=== PATIENT | male | born 1955 | race Caucasian/White ===

== ENCOUNTER 2018-01-05 15:31 | Inpatient (IN) | payer OTHER, SELFPAY ==
[~2018-01-05 15:31] MED LIST: ISOVUE-370 76%-LOCM 1 ML ONE
[2018-01-05] MEDS ORDERED: Nitroglycerin 0.4 MG TAB (25 Tab Bottle) ONE (15:59)
--- NOTE | 2018-01-05 16:20 | RAD ---
PORTABLE UPRIGHT FRONTAL CHEST RADIOGRAPH: 01/05/2018 HISTORY: Chest pain. COMPARISON: None. FINDINGS: Midline sternotomy wires are present. There is mild increased linear density in the left base, sugge sting volume loss or scar. No focal consolidation or alveolar edema. IMPRESSION: No acute findings. POS: [facility]
[2018-01-05] MEDS ORDERED: Fentanyl 100 MCG/2 ML VIAL ONE (16:23)
[2018-01-05 16:26] LABS: CKMB 0.9 ng/mL (0-6.6); Troponin I Less than 0.010 ng/mL (< 0.028)
[2018-01-05 17:05] LABS: #Basophils 0.1 thou/uL (0.0-0.2); #Eosinphils 0.2 thou/uL (0.0-0.7); #Lymphocytes 2.1 thou/uL (1.20-3.40); #Monocytes 0.7 thou/uL (0.11-0.59); #Neutrophils 10.3 thou/uL (1.40-6.50); %Basophils 0.4 % (0.0-1.0); %Eosinophils 1.4 % (0.0-10.0); %Lymphocytes 15.7 % (21.0-51.0); %Monocytes 5.2 % (0.0-10.0); %Neutrophils 77.3 % (42.0-75.0); Hemoglobin 12.7 g/dL (14.0-18.0); Mean Corpuscular HGB CONC 35.5 g/dL (32.0-36.0); Mean Corpuscular Hemoglobin 33.3 pg (27.0-31.0); Mean Corpuscular Volume 93.8 fl (80.0-94.0); Mean Platelet Volume 9.5 fL (7.4-10.4); Platelet Count 257 thou/uL (130-400); RBC Distribution Width 13.3 % (11.5-14.5); Red Blood Cell (RBC) Count 3.83 mill/uL (4.70-6.10); White Blood Cell (WBC) Count 13.4 thou/uL (4.8-10.8)
[2018-01-05] MEDS ORDERED: Lidocaine Viscous Sol 2% 15 ml UD Cup ONE (18:18)
[2018-01-05] MEDS ORDERED: Mag-Al 1200 mg/1200 mg/30 ML UDCUP ONE (18:18)
[2018-01-05 19:37] LABS: Alkaline Phosphatase 102 U/L (40-150)
[2018-01-05 19:38] LABS: Bilirubin, Total 0.7 mg/dL (0.2-1.2); Calc. Creatinine Clearance 0 mL/min (70-130); Calcium 9.2 mg/dL (7.8-10.44); Carbon Dioxide 18 mmol/L (23-31); Chloride 104 mmol/L (98-107); Estimated GFR-MDRD 55; Potassium 4.6 mmol/L (3.5-5.1); Sodium 133 mmol/L (136-145)
[2018-01-05 19:39] LABS: Anion Gap 16 mmol/L (10-20); BUN (Urea Nitrogen) 17 mg/dL (8.4-25.7)
[2018-01-05 19:40] LABS: Globulin 2.6 g/dL (2.4-3.5); Glucose 167 mg/dL (80-115)
[2018-01-05 19:42] LABS: ALT (SGPT) 41 U/L (8-55); AST (SGOT) 40 U/L (5-34); Protein, Total 6.6 g/dL (5.8-8.1)
[2018-01-05] MEDS ORDERED: Morphine 4 MG/ML VIAL ONE (20:14)
--- NOTE | 2018-01-05 21:31 | CT ---
CT AORTIC DISSECTION PROTOCOL 01/05/18 HISTORY: Chest pain. COMPARISON: None. TECHNIQUE: CT angiogram of the thoracic and abdominal aorta is performed in the axial plane. Three dimensional r eformatted images are submitted for interpretation. FINDINGS: CHEST CT: No mediastinal mass, lymphadenopathy, or hematoma. Heart is enlarged. There is no significant pericar dial fluid. Coronary artery calcifications are identified. Dependent atelectatic changes. Possible pneumonia in the left lower lobe versus atelectasis. No pleur al effusion. No pneumothorax. Trachea and central bronchi are patent. ABDOMEN CT: Hypodensities in the liver are too small to characterize but may represent cysts. The largest cyst me asures 1.9 cm and has an attenuation coefficient of 0 Hounsfield units. Diffuse hepatic steatosis is noted. Spleen, adrenal glands are unremarkable. Gallbladder is unremarkable. Bilateral nonobstructing intrarenal calculi. Right renal cyst measuring 2.6 cm is noted. Subcentimet er hypodensity in the left kidney is suspected. Bilaterally, no obstructive uropathy. There is edema and peripancreatic stranding and fluid at the level of the tail of the pancreas. No ev idence of cyst, abscess, or pseudocyst. Visualized alimentary canal is unremarkable. There is free fluid in the left hemiabdomen. No mass, lymphadenopathy, or free air. CT ANGIOGRAM: The aortic arch, ascending thoracic aorta, aortic knob and descending thoracic aorta have an overall normal course and caliber. The origin of the innominate artery, left common carotid artery, and left subclavian artery are unremarkable. The abdominal aorta does demonstrate atherosclerosis. No high gra de stenosis. No evidence of aneurysm. The celiac artery origin, superior mesenteric artery origin, le ft renal arteries and right renal artery are unremarkable. Note, there are two left renal arteries and a single right renal artery. Inferior mesenteric artery origin is unremarkable. Aortic bifurcation is unremarkable. There are no lytic or blastic lesions in the osseous structures. IMPRESSION: 1. No evidence of aneurysm or dissection. 2. Pancreatitis involving the tail of the pancreas. No associated abscess, cyst or pseudocyst. POS: [facility]
[2018-01-05] MEDS ORDERED: cefTRIAXone\\ROCEPHIN 1 GM VIAL ONE (21:49)
[2018-01-05] MEDS ORDERED: HYDROcodone/Acetaminophen 5/325 mg Tablet ONE (22:52)
[2018-01-05 23:29] LABS: Troponin I Less than 0.010 ng/mL (< 0.028)
--- NOTE | 2018-01-06 00:11 | PDOC.FPRHP ---
- History of Present Illness Chief Complaint: Abdominal Pain History of Present Illness: 62 yo M with PMH including HTN, HLD, DM2, and GERD comes in with abdominal pain that started today. The pain is in the LUQ and described as aching, he states the pain is right under the ribs, it radiates around the the back. He has never had anything like this before. He has had nausea today and < 3 episodes of vomiting but he doesn't remember exactly how many times. The pain does not seem to be related to eating. He denies fevers, chills, sweats, or diarrhea. The last time he ate was a sandwich around 11 am. The patient is from out of town and is in town visiting his daughter. ED Course: IVF [place], morphine x2 Rocephin CTA to r/o aneurysm, shows pancreatitis CXR shows LLL linear density, suggests scar or volume loss - Allergies/Adverse Reactions Allergies Allergy/AdvReac Type Severity Reaction Status Date / Time No Known Allergies Allergy Verified 01/06/18 01:18 - Home Medications Medication Instructions Recorded Confirmed Type Allopurinol 300 mg PO DAILY 01/06/18 01/06/18 History Amlodipine [Norvasc] 5 mg PO DAILY 01/06/18 01/06/18 History Aspirin [Aspirin Chewable] 81 mg PO DAILY 01/06/18 01/06/18 History Cholecalciferol (Vitamin D3) 1,000 unit PO DAILY 01/06/18 01/06/18 History [Vitamin D3] Fish Oil [Fish Oil] 1,000 mg PO DAILY 01/06/18 01/06/18 History Metoprolol Succinate [Toprol XL] 200 mg PO BID 01/06/18 01/06/18 History Multivit, Therapeutic [Theragran] 1 tab PO DAILY 01/06/18 01/06/18 History Omeprazole 20 mg PO DAILY 01/06/18 01/06/18 History Spironolactone 25 mg PO DAILY 01/06/18 01/06/18 History glipiZIDE [Glipizide] 5 mg PO DAILY 01/06/18 01/06/18 History hydrOXYzine [Atarax] 10 mg PO HS 01/06/18 01/06/18 History - History PMHx: HTN,hypertriglyceridemia, HLD, DM2, Gout, CAD PSHx: CABG 2011, bilateral hip replacement FHx: non-contributory Social: 2-3 beers a week, 1 bottle of wine per month, no smoking or drugs - Review of Systems General: denies: fever/chills, night sweats, fatigue ENT: denies: nasal congestion Respiratory: denies: cough, congestion, shortness of breath Cardiovascular: denies: chest pain, palpitation Gastrointestinal: reports: nausea, vomiting, abdominal pain. denies: diarrhea, GI bleeding Genitourinary: denies: dysuria, polyuria Skin: denies: rashes, itching Musculoskeletal: denies: pain, arthritis/arthralgias Neurological: denies: numbness, weakness Psychological: denies: anxiety, depression - Vital signs BP: HR: 70 RR: 18 Tmax: 98.4 Pox: 94% on RA Wt: 108.4 - Physical Exam Constitutional: NAD, awake, alert and oriented HEENT: normocephalic and atraumatic, PERRLA, EOMI Neck: supple Heart: RRR, normal S1/S2 Lungs: CTAB, no respiratory distress, good air movement Abdomen: soft, bowel sounds present -Abdomen: diffusely tender to deep palpation Musculoskeletal: normal structure, ROM grossly normal Neurological: no focal deficit Skin: no rash/lesions, capillary refill <2 seconds Heme/Lymphatic: no unusual bruising or bleeding Psychiatric: normal mood and affect FMR H&P: Results - Labs Result Diagrams: 01/06/18 01:12 01/06/18 11:10 Lab results: WBC 13.4 thou/uL (4.8-10.8) H 01/05/18 16:30 Hgb 12.7 g/dL (14.0-18.0) L 01/05/18 16:30 Hct 35.9 % (42.0-52.0) L 01/05/18 16:30 MCV 93.8 fl (80.0-94.0) 01/05/18 16:30 Plt Count 257 thou/uL (130-400) 01/05/18 16:30 Neutrophils % 77.3 % (42.0-75.0) H 01/05/18 16:30 Sodium 133 mmol/L (136-145) L 01/05/18 16:34 Potassium 4.6 mmol/L (3.5-5.1) 01/05/18 16:34 Chloride 104 mmol/L (98-107) 01/05/18 16:34 Carbon Dioxide 18 mmol/L (23-31) L 01/05/18 16:34 BUN 17 mg/dL (8.4-25.7) 01/05/18 16:34 Creatinine 1.32 mg/dL (0.6-1.3) H 01/05/18 16:34 Glucose 167 mg/dL (80-115) H 01/05/18 16:34 Calcium 9.2 mg/dL (7.8-10.44) 01/05/18 16:34 Total Bilirubin 0.7 mg/dL (0.2-1.2) 01/05/18 16:34 AST 40 U/L (5-34) H 01/05/18 16:34 ALT 41 U/L (8-55) 01/05/18 16:34 Alkaline Phosphatase 102 U/L (40-150) 01/05/18 16:34 Creatine Kinase 64 U/L (30-200) 01/05/18 15:51 CK-MB (CK-2) 0.9 ng/mL (0-6.6) 01/05/18 15:50 B-Natriuretic Peptide 111.8 pg/mL (0-100) H 01/05/18 16:30 Serum Total Protein 6.6 g/dL (5.8-8.1) 01/05/18 16:34 Albumin 4.0 g/dL (3.4-4.8) 01/05/18 16:34 Lipase 626 U/L (8-78) H 01/05/18 16:30 FMR H&P: A/P - Problem List (1) Pancreatitis Current Visit: Yes Status: Acute Code(s): K85.90 - ACUTE PANCREATITIS WITHOUT NECROSIS OR INFECTION, UNSP (2) Hypertriglyceridemia Current Visit: Yes Status: Acute Code(s): E78.1 - PURE HYPERGLYCERIDEMIA (3) History of coronary artery bypass graft Current Visit: Yes Status: Acute (4) HTN (hypertension) Current Visit: Yes Status: Acute Code(s): I10 - ESSENTIAL (PRIMARY) HYPERTENSION (5) Gout Current Visit: Yes Status: Acute Code(s): M10.9 - GOUT, UNSPECIFIED (6) Diabetes type 2, controlled Current Visit: Yes Status: Acute Code(s): E11.9 - TYPE 2 DIABETES MELLITUS WITHOUT COMPLICATIONS - Plan 62 yo M with PMH of CABG and hypertriglyceridemia being treated for pancreatitis # Acute Pancreatitis - likely 2/2 history of hypertriglyceridemia - differential includes alcohol, gallstones - check lipid panel, RUQ - IVF, pain relief, advance diet as tolerated - will continue statin although this is potentially a source for pancreatitis # Hx of CAD - CABG in 2011 - trop negative - ASA statin # YONIS - trend Cr - IVF #HTN - home meds # DM2 - home meds - mild SSI Dispo: >48 hours FMR H&P: Upper Level - Pertinent history 62 yo M with PMH of HTN, DM2 presents with severe abdominal pain. Endorses some N/V today as well, nonbloody/nonbilious. Pain in epigastric in nature, nonradiating. No diarrhea. Last po earlier this afternoon. - Pertinent findings PE: T: 97.8 P: 78 BP: 150/77 RR: 18 94% on RA Gen: [place] male in NAD HEENT: PERRL, EOMI, MMM, no lymphadenopathy or thyromegaly CV: RRR no murmurs, distal pulses intact Pulm: CTAB, no wheezes or rhonchi Abd: soft, mildly TTP at epigastrium, BS present, no masses or distention Ext: no cyanosis or edema MSK: KO well, no joint or muscle pain or swelling Neuro: CN 2-12 intact, normal sensation Skin: no rashes or lesions Psych: A&O x3, appropriate in conversation - Plan Date/Time: 01/06/18 0011 62 yo M here with abd pain. 1) Acute pancreatitis: Admit to medical floor. Continue IVF resuscitation. Will hold NPO, but gradually transition to clears in AM if he is able to tolerate this. Check FLP. 2) YONIS: continue IVFs and trend with AM labs 3) HTN: continue home medications 4) DM2: continue po meds I, [Hudson Mak], have evaluated this patient and agree with findings/plan as outlined by administration internship resident. Pertinent changes/additions are listed here. Attending Addendum - Attending Addendum Date/Time: 01/06/18 1037 I personally evaluated the patient and discussed the management with Dr. Lamb. I agree with the History, Examination, Assessment and Plan documented above with any addition or exceptions noted below. The patient is admitted for acute pancreatitis likely 2/2 hypertriglyceridemia. Pt will be managed with fluids and pain meds. RUQ ultrasound was reviewed. Getting records from PCP on recent triglyceride levels because per pt it was 7000.
[2018-01-06] MEDS ORDERED: Dextrose 50% Abboject 50 ML SYRINGE SLOW IVP PRN (00:51)
[2018-01-06] MEDS ORDERED: HumaLOG 300 UNITS/3 ML VIAL SC PRN (00:51)
[2018-01-06] MEDS ORDERED: Dextrose 5% in Water 1,000 ML IV PRN (00:51)
[2018-01-06 01:27] VITALS: BMI 36.3
[2018-01-06 01:47] LABS: Troponin I Less than 0.010 ng/mL (< 0.028)
[2018-01-06] MEDS: Lactated Ringer's 1,000 ML IV SCH ×5 (01:54→19:57)
[2018-01-06] MEDS: Zolpidem Tartrate 5 MG TAB PO PRN ×2 (01:54→21:08)
[2018-01-06] MEDS: Morphine 4 MG/ML VIAL SLOW IVP PRN ×3 (04:51→19:53)
[2018-01-06 07:27] LABS: #Eosinphils 0.1 thou/uL (0.0-0.7); #Lymphocytes 2.3 thou/uL (1.20-3.40); #Monocytes 0.6 thou/uL (0.11-0.59); %Basophils 0.4 % (0.0-1.0); %Eosinophils 1.1 % (0.0-10.0); %Lymphocytes 19.3 % (21.0-51.0); %Monocytes 5.1 % (0.0-10.0); %Neutrophils 74.2 % (42.0-75.0); Hemoglobin 12.9 g/dL (14.0-18.0); Mean Corpuscular HGB CONC 34.2 g/dL (32.0-36.0); Mean Corpuscular Hemoglobin 32.4 pg (27.0-31.0); Mean Corpuscular Volume 94.7 fl (80.0-94.0); Mean Platelet Volume 9.3 fL (7.4-10.4); Platelet Count 224 thou/uL (130-400); RBC Distribution Width 13.9 % (11.5-14.5); Red Blood Cell (RBC) Count 3.99 mill/uL (4.70-6.10); White Blood Cell (WBC) Count 12.1 thou/uL (4.8-10.8)
--- NOTE | 2018-01-06 08:06 | ULT ---
RIGHT UPPER QUADRANT ULTRASOUND: HISTORY: Pancreatitis. Abdominal pain. FINDINGS: The liver demonstrates increased echogenicity, consistent with fatty infiltration. No focal mass or hepatic ductal dilatation is seen. No gallstones, gallbladder wall thickening, or pericholecystic fl uid is seen. The common duct measures 7 mm in diameter. The tail of the pancreas is obscured by ove rlying bowel gas. The visualized portions of the pancreas are unremarkable. There is a 2.5 cm cyst in the right kidney. The liver lesions close to the dome of the liver on the CT scan from the previo us day are not visualized on this study. IMPRESSION: 1. Fatty liver. 2. No evidence of cholelithiasis. 3. Right renal cyst. POS: [facility]
[2018-01-06] MEDS: Spironolactone 25 MG TAB PO SCH (08:18)
[2018-01-06] MEDS: glipiZIDE 5 MG TAB PO SCH (08:18)
[2018-01-06] MEDS: Enoxaparin Sodium 40 MG/0.4 ML SYRINGE SC SCH (08:20)
[2018-01-06] MEDS: Amlodipine 5 MG TAB PO SCH (08:20)
[2018-01-06] MEDS: Ondansetron HCl/PF 4 MG/2 ML Vial IVP PRN ×2 (09:28→17:23)
[2018-01-06 12:04] LABS: Albumin 3.7 g/dL (3.4-4.8)
[2018-01-06 12:05] LABS: ALT (SGPT) 32 U/L (8-55); AST (SGOT) 49 U/L (5-34); Alkaline Phosphatase 93 U/L (40-150); Calcium 8.3 mg/dL (7.8-10.44)
[2018-01-06 12:06] LABS: Calc. Creatinine Clearance 110 mL/min (70-130); Chloride 101 mmol/L (98-107); Cholesterol 434 mg/dL (< 200 Desired); Estimated GFR-MDRD 70; Globulin 3.3 g/dL (2.4-3.5); Glucose 192 mg/dL (80-115); Potassium 4.7 mmol/L (3.5-5.1); Sodium 131 mmol/L (136-145)
[2018-01-06 12:08] LABS: BUN (Urea Nitrogen) 10 mg/dL (8.4-25.7); Carbon Dioxide 22 mmol/L (23-31)
[2018-01-06 12:09] LABS: Anion Gap 13 mmol/L (10-20)
[2018-01-06 12:10] LABS: Triglycerides 2525 mg/dL (Less than 150)
[2018-01-06 12:11] LABS: HDL Cholesterol 16 mg/dL (>60 Neg Risk)
[2018-01-06 12:15] LABS: Cardiac Risk 27.1 (Less than 4.5)
[2018-01-06] MEDS: HYDROcodone/Acetaminophen 10/325 mg Tablet PO PRN (14:50)
[2018-01-06] MEDS: Atorvastatin Calcium 40 MG TAB PO SCH (19:52)
[2018-01-07] MEDS: Lactated Ringer's 1,000 ML IV SCH ×3 (01:20→08:41)
[2018-01-07] MEDS: Morphine 4 MG/ML VIAL SLOW IVP PRN ×4 (03:37→20:18)
[2018-01-07 05:13] LABS: Hemoglobin A1c 6.1 % (4.0-6.0)
[2018-01-07 05:45] LABS: ALT (SGPT) 21 U/L (8-55); AST (SGOT) 18 U/L (5-34); Albumin 3.4 g/dL (3.4-4.8); Alkaline Phosphatase 85 U/L (40-150); Anion Gap 17 mmol/L (10-20); BUN (Urea Nitrogen) 7 mg/dL (8.4-25.7); Bilirubin, Total 1.2 mg/dL (0.2-1.2); Calc. Creatinine Clearance 114 mL/min (70-130); Calcium 7.9 mg/dL (7.8-10.44); Carbon Dioxide 19 mmol/L (23-31); Cardiac Risk 27.5 (Less than 4.5); Chloride 99 mmol/L (98-107); Cholesterol 330 mg/dl (< 200 Desired); Estimated GFR-MDRD 73; Globulin 3.4 g/dL (2.4-3.5); Glucose 172 mg/dL (80-115); HDL Cholesterol 12 mg/dL (>60 Neg Risk); Lipase 263 U/L (8-78); Potassium 4.1 mmol/L (3.5-5.1); Protein, Total 6.8 g/dL (5.8-8.1); Sodium 131 mmol/L (136-145)
[2018-01-07 06:07] LABS: Triglycerides 1468 mg/dL (Less than 150)
[2018-01-07] MEDS: Ondansetron HCl/PF 4 MG/2 ML Vial IVP PRN ×3 (06:39→21:46)
--- NOTE | 2018-01-07 07:02 | PDOC.FM ---
Addendum entered and electronically signed by Nancy Pham DO 01/07/18 14:07: CXR shows vascular congestion and BNP elevated from 111 to 200's since admission. Will order echo and give a dose of IV lasix. Restart IVF tomorrow at slower rate. Also 2 problems that did not get added to todays note: 1. Elevated Protein - SPEP and UPEP pending - patient reports hx of back pain that is currently being worked up outpatient 2. LETY on CPAP at home - will get CPAP here for napping and qHS Original Note: - Subjective Subjective: Patient reports feeling better, but still with nausea and abdominal pain with palpation. He has been tolerating broth and clear liquids. His pain is controlled with Morphine. Reports Osmond made him feel sick to his stomach. No acute events overnight. - Objective MAR Reviewed: Yes Vital Signs & Weight: Vital Signs (12 hours) Temp Pulse Resp BP Pulse Ox 01/07/18 05:10 98.4 F 81 22 H 153/107 H 91 L 01/07/18 01:00 98.4 F 86 22 H 169/82 H 90 L 01/06/18 20:00 98.5 F 82 20 145/78 H Weight Weight 108.409 kg I&O: 01/06/18 01/07/18 01/08/18 06:59 06:59 06:59 Intake Total 1140 2620 Balance 1140 2620 Result Diagrams: 01/06/18 01:12 01/07/18 04:44 <Nancy Pham - Last Filed: 01/07/18 09:18> - Objective Vital Signs & Weight: Vital Signs (12 hours) Temp Pulse Resp BP BP BP Pulse Ox 01/07/18 18:55 98.6 F 01/07/18 16:53 99.2 F 72 16 138/80 94 L 01/07/18 11:57 98.5 F 74 16 133/74 95 01/07/18 08:49 98 01/07/18 08:38 75 150/76 H 01/07/18 08:13 98.6 F 75 16 150/76 H 93 L 01/07/18 08:00 98.6 F 75 16 98 Weight Weight 108.409 kg I&O: 01/06/18 01/07/18 01/08/18 06:59 06:59 06:59 Intake Total 1140 2620 2070 Output Total 600 Balance 1140 2620 1470 Result Diagrams: 01/06/18 01:12 01/07/18 04:44 <Mariel Carballo - Last Filed: 01/07/18 19:47> Phys Exam - Physical Examination Constitutional: NAD conversational HEENT: moist MMs rhonchi at bases, increased work of breathing from yesterday Cardiovascular: RRR, no significant murmur Gastrointestinal: soft mild-mod tenderness to palpation of LUQ, no rebound or guarding 1+ pitting edema Psychiatric: normal affect, A&O x 3 Skin: cap refill <2 seconds <Nancy Pham - Last Filed: 01/07/18 09:18> Dx/Plan (1) Diabetes type 2, controlled Code(s): E11.9 - TYPE 2 DIABETES MELLITUS WITHOUT COMPLICATIONS Status: Acute (2) HTN (hypertension) Code(s): I10 - ESSENTIAL (PRIMARY) HYPERTENSION Status: Acute (3) History of coronary artery bypass graft Status: Acute (4) Hypertriglyceridemia Code(s): E78.1 - PURE HYPERGLYCERIDEMIA Status: Acute (5) Pancreatitis Code(s): K85.90 - ACUTE PANCREATITIS WITHOUT NECROSIS OR INFECTION, UNSP Status: Acute (6) YONIS (acute kidney injury) Code(s): N17.9 - ACUTE KIDNEY FAILURE, UNSPECIFIED Status: Acute - Plan Plan: Acute Pancreatitis 2/2 Hypertriglyceridemia - tri 2525--> 1468 today, trend - RUQ u/s negative for stones - back off on IVF, pain relief, advance diet as tolerated - continue statin and add fibrate or niacin for triglyceride treatment Orthopnea and Increased work of breathing - has received aggressive IVF hydration - CXR and BNP ordered - d/c fluids until results of above Hx of CAD - CABG in 2010 - trop negative - continue ASA, statin YONIS, improving - trend Cr #HTN - continue home meds - elevated but could be due to pain - will continue to trend and consider adding another agent # DM2 - home Glipizide - has been elevated in the 190's -200's here - increase to moderate SSI - A1c 6.1 but patient has noticed increases in sugars over the last 2 weeks <Nancy Pham - Last Filed: 01/07/18 09:18> (1) Pancreatitis Code(s): K85.90 - ACUTE PANCREATITIS WITHOUT NECROSIS OR INFECTION, UNSP Status: Acute (2) Hypertriglyceridemia Code(s): E78.1 - PURE HYPERGLYCERIDEMIA Status: Acute (3) History of coronary artery bypass graft Status: Acute (4) HTN (hypertension) Code(s): I10 - ESSENTIAL (PRIMARY) HYPERTENSION Status: Acute (5) Gout Code(s): M10.9 - GOUT, UNSPECIFIED Status: Acute (6) Diabetes type 2, controlled Code(s): E11.9 - TYPE 2 DIABETES MELLITUS WITHOUT COMPLICATIONS Status: Acute <Mariel Carballo - Last Filed: 01/07/18 19:47> Attending Addendum - Attending Addendum Date/Time: 01/07/181945 I personally evaluated the patient and discussed the management with Dr. Pham. I agree with the History, Examination, Assessment and Plan documented above with any addition or exceptions noted below. Triglycerides have improved with fluids. Pt now has shortness of breath this morning which is worse when lying flat. IV fluids are being stopped. Obtaining CXR, BNP. May need lasix. He does still have abdominal pain in the region of the tail of the pancreas. Continue liquids. <Mariel Carballo - Last Filed: 01/07/18 19:47>
[2018-01-07] MEDS: glipiZIDE 5 MG TAB PO SCH (08:38)
[2018-01-07] MEDS: Amlodipine 5 MG TAB PO SCH (08:38)
[2018-01-07] MEDS: Spironolactone 25 MG TAB PO SCH (08:38)
[2018-01-07] MEDS: Enoxaparin Sodium 40 MG/0.4 ML SYRINGE SC SCH (08:40)
[2018-01-07] MEDS ORDERED: HumaLOG 300 UNITS/3 ML VIAL SC PRN (09:16)
[2018-01-07] MEDS ORDERED: Dextrose 5% in Water 1,000 ML IV PRN (09:16)
[2018-01-07] MEDS ORDERED: Dextrose 50% Abboject 50 ML SYRINGE SLOW IVP PRN (09:16)
--- NOTE | 2018-01-07 10:58 | RAD ---
CHEST ONE VIEW: HISTORY: Dyspnea. COMPARISON: 01/05/2018 FINDINGS: The cardiac silhouette is magnified, enlarged, and partially obscured by increasing patchy bibasilar infiltrates. The pulmonary vasculature is engorged. Blunting of the left lateral costophrenic angle suggests a small amount of pleural fluid. The mediastinum is midline with postoperative changes. IMPRESSION: Developing pulmonary vascular congestion and pulmonary edema. Suspected small left pleural effusion. POS: [facility]
[2018-01-07] MEDS ORDERED: Furosemide 40 MG/4 ML VIAL SLOW IVP SCH (12:15)
[2018-01-07] MEDS: Acetaminophen 325 MG TAB PO PRN (17:52)
[2018-01-07] MEDS: HumaLOG 300 UNITS/3 ML VIAL SC PRN (18:03)
[2018-01-07] MEDS: Cepastat Lozenges 1 LOZ PO PRN (18:32)
[2018-01-07] MEDS: Docusate 100 MG CAP PO SCH (20:17)
[2018-01-07] MEDS: Atorvastatin Calcium 40 MG TAB PO SCH (20:18)
[2018-01-07] MEDS: Zolpidem Tartrate 5 MG TAB PO PRN (21:46)
[2018-01-08] MEDS: Cepastat Lozenges 1 LOZ PO PRN ×3 (04:28→20:25)
[2018-01-08 05:04] LABS: Triglycerides 1148 mg/dL (Less than 150)
[2018-01-08 05:21] LABS: ALT (SGPT) 21 U/L (8-55); AST (SGOT) 42 U/L (5-34); Albumin 3.4 g/dL (3.4-4.8); Alkaline Phosphatase 98 U/L (40-150); Anion Gap 16 mmol/L (10-20); BUN (Urea Nitrogen) 9 mg/dL (8.4-25.7); Band 4 % (5-11); Bilirubin, Total 1.2 mg/dL (0.2-1.2); Calc. Creatinine Clearance 101 mL/min (70-130); Calcium 8.6 mg/dL (7.8-10.44); Carbon Dioxide 22 mmol/L (23-31); Cardiac Risk 25.3 (Less than 4.5); Chloride 98 mmol/L (98-107); Cholesterol 303 mg/dl (< 200 Desired); Eosinophils 4 % (0-10); Estimated GFR-MDRD 63; Globulin 4.4 g/dL (2.4-3.5); Glucose 145 mg/dL (80-115); HDL Cholesterol 12 mg/dL (>60 Neg Risk); Hemoglobin 12.1 g/dL (14.0-18.0); Lymphocytes 11 % (21-51); MDiff Complete? YES; Mean Corpuscular HGB CONC 33.3 g/dL (32.0-36.0); Mean Corpuscular Hemoglobin 30.9 pg (27.0-31.0); Mean Corpuscular Volume 92.8 fl (80.0-94.0); Monocytes 5 % (0-10); Neutrophil 76 % (42-75); Platelet Count 199 thou/uL (130-400); Potassium 4.4 mmol/L (3.5-5.1); Protein, Total 7.8 g/dL (5.8-8.1); RBC Distribution Width 12.9 % (11.5-14.5); Sodium 132 mmol/L (136-145); White Blood Cell (WBC) Count 10.6 thou/uL (4.8-10.8)
--- NOTE | 2018-01-08 05:37 | PDOC.FM ---
- Subjective Subjective: Patient reports worsening pain at the region of the tail of the pancreas, limiting his ability to take deep breaths. He reports nausea with any intake of broth and worsening pain. Overnight he did have a mechanical fall due to his inability to get CPAP mask off quick enough to get to the bathroom. States he urinated a little on the floor and then slipped on it. Today he is weight bearing but does have some pain in his L hip. He had a L hip replacement in the past. - Objective MAR Reviewed: Yes Vital Signs & Weight: Vital Signs (12 hours) Temp Pulse Resp BP Pulse Ox 01/08/18 05:20 98.9 F 85 20 115/72 91 L 01/08/18 04:00 98.5 F 82 20 147/76 H 91 L 01/08/18 00:44 98.6 F 79 20 153/81 H 93 L 01/07/18 21:55 77 92 H 01/07/18 20:15 98.6 F 73 22 H 127/72 92 L 01/07/18 20:00 98.6 F 77 20 01/07/18 18:55 98.6 F Weight Weight 108.409 kg I&O: 01/06/18 01/07/18 01/08/18 06:59 06:59 06:59 Intake Total 1140 2620 2070 Output Total 600 Balance 1140 2620 1470 Result Diagrams: 01/08/18 03:36 01/08/18 03:36 <Nancy Pham - Last Filed: 01/08/18 08:57> - Objective Vital Signs & Weight: Vital Signs (12 hours) Temp Pulse Resp BP Pulse Ox 01/08/18 11:51 95 01/08/18 08:28 98.5 F 80 22 H 131/62 91 L 01/08/18 08:00 98.5 F 80 22 H 91 L 01/08/18 05:20 98.9 F 85 20 115/72 91 L 01/08/18 04:00 98.5 F 82 20 147/76 H 91 L 01/08/18 00:44 98.6 F 79 20 153/81 H 93 L Weight Weight 108.409 kg I&O: 01/07/18 01/08/18 01/09/18 06:59 06:59 06:59 Intake Total 2620 2070 Output Total 600 Balance 2620 1470 Result Diagrams: 01/08/18 03:36 01/08/18 03:36 <Mariel Carballo - Last Filed: 01/08/18 12:43> Phys Exam - Physical Examination Constitutional: NAD HEENT: moist MMs rhonchi at the bases, short inspiratory phase, poor effort Cardiovascular: RRR, no significant murmur Gastrointestinal: soft tenderness in LUQ area in the area of the tail end of pancreas stool palpable in lower abdomen 1+ pitting edema L hip with ttp over greater trochanter, no swelling or bruising Neurological: moves all 4 limbs Psychiatric: normal affect, A&O x 3 Skin: cap refill <2 seconds <Nancy Pham - Last Filed: 01/08/18 08:57> Dx/Plan (1) Diabetes type 2, controlled Code(s): E11.9 - TYPE 2 DIABETES MELLITUS WITHOUT COMPLICATIONS Status: Acute (2) HTN (hypertension) Code(s): I10 - ESSENTIAL (PRIMARY) HYPERTENSION Status: Acute (3) History of coronary artery bypass graft Status: Acute (4) Hypertriglyceridemia Code(s): E78.1 - PURE HYPERGLYCERIDEMIA Status: Acute (5) Pancreatitis Code(s): K85.90 - ACUTE PANCREATITIS WITHOUT NECROSIS OR INFECTION, UNSP Status: Acute (6) YONIS (acute kidney injury) Code(s): N17.9 - ACUTE KIDNEY FAILURE, UNSPECIFIED Status: Acute (7) Fall Code(s): W19.XXXA - UNSPECIFIED FALL, INITIAL ENCOUNTER Status: Acute (8) Hip pain Code(s): M25.559 - PAIN IN UNSPECIFIED HIP Status: Acute (9) Constipation Code(s): K59.00 - CONSTIPATION, UNSPECIFIED Status: Acute - Plan Plan: Acute Pancreatitis 2/2 Hypertriglyceridemia - tri 2525--> 1468--> 1140 today - RUQ u/s negative for stones - NPO with water allowed, reports increased pain when eating broths - continue statin and add fibrate or niacin for triglyceride treatment Orthopnea and Increased work of breathing - has received aggressive IVF hydration, IVF d/c'd yesterday - CXR and BNP suggestive of underlying CHF - echo pending - s/p 40mg IV lasix yesterday with improvement, still with SOB and some rhonchi , will give 20IV lasix this am Hip Pain - s/p fall last night while trying to get out of bed to use the restroom - d/c Ambien - consider L hip xray Hx of CAD - CABG in 2010 - trop negative - continue ASA, statin YONIS - worsened, likely 2/2 Lasix - Cr 1.18, trend Constipation - colace BID - will give dulcolax today HTN - continue home meds - elevated but could be due to pain - will continue to trend and consider adding another agent DM2 - home Glipizide - has been elevated in the 190's -200's here - increase to moderate SSI - A1c 6.1 but patient has noticed increases in sugars over the last 2 weeks Elevated Protein - SPEP and UPEP pending - patient reports hx of back pain that is currently being worked up outpatient LETY on CPAP at home - CPAP in place, did well overnight. <Nancy Pham - Last Filed: 01/08/18 08:57> (1) Pancreatitis Code(s): K85.90 - ACUTE PANCREATITIS WITHOUT NECROSIS OR INFECTION, UNSP Status: Acute (2) Hypertriglyceridemia Code(s): E78.1 - PURE HYPERGLYCERIDEMIA Status: Acute (3) History of coronary artery bypass graft Status: Acute (4) HTN (hypertension) Code(s): I10 - ESSENTIAL (PRIMARY) HYPERTENSION Status: Acute (5) Gout Code(s): M10.9 - GOUT, UNSPECIFIED Status: Acute (6) Diabetes type 2, controlled Code(s): E11.9 - TYPE 2 DIABETES MELLITUS WITHOUT COMPLICATIONS Status: Acute <Mariel Carballo - Last Filed: 01/08/18 12:43> Attending Addendum - Attending Addendum Date/Time: 01/08/18 1238 I personally evaluated the patient and discussed the management with Dr. Pham. I agree with the History, Examination, Assessment and Plan documented above with any addition or exceptions noted below. The patient is still having abdominal pain. Will stop liquid diet. The patient is short of breath this morning. will get CTA chest and rescan abdomen. Echo is pending. <Mariel Carballo - Last Filed: 01/08/18 12:43>
[2018-01-08] MEDS ORDERED: Furosemide 40 MG TAB PO SCH (07:30)
[2018-01-08] MEDS ORDERED: Bisacodyl 10 MG SUPP PR PRN (08:53)
[2018-01-08] MEDS ORDERED: Furosemide 20 MG/2 ML VIAL SLOW IVP SCH (09:00)
[2018-01-08] MEDS: Morphine 4 MG/ML VIAL SLOW IVP PRN (09:50)
[2018-01-08] MEDS: Fish Oil 1,000 MG CAP PO SCH (09:51)
[2018-01-08] MEDS: Docusate 100 MG CAP PO SCH ×2 (09:52→20:25)
[2018-01-08] MEDS: Allopurinol 300 MG TAB PO SCH (09:52)
[2018-01-08] MEDS: glipiZIDE 5 MG TAB PO SCH (09:53)
[2018-01-08] MEDS: Spironolactone 25 MG TAB PO SCH (09:54)
[2018-01-08] MEDS: Amlodipine 5 MG TAB PO SCH (09:54)
[2018-01-08] MEDS: Enoxaparin Sodium 40 MG/0.4 ML SYRINGE SC SCH (09:55)
--- NOTE | 2018-01-08 10:06 | RAD ---
LEFT HIP 2 VIEWS: Date: 01/08/18 HISTORY: 62-year-old male with history of left hip pain following a fall. FINDINGS: Total left hip prosthesis changes. No dislocation or evidence for periprosthetic fracture. Moderate m yositis ossificans, presumably postoperative. IMPRESSION: Total left hip replacement without dislocation or periprosthetic fracture. POS: [facility]
[2018-01-08] MEDS: Ondansetron HCl/PF 4 MG/2 ML Vial IVP PRN ×2 (11:47→17:36)
[2018-01-08] MEDS: Sodium Chloride 0.9% 1,000 ML IV SCH (11:49)
[2018-01-08 14:30] LABS: A/G Ratio 0.9 (0.7-1.7); Albumin 3.1 g/dL (2.9-4.4); Alpha 1 0.2 g/dL (0.0-0.4); Alpha 2 1.2 g/dL (0.4-1.0); Beta 1.1 g/dL (0.7-1.3); Gamma 0.9 g/dL (0.4-1.8); Globulin, Total 3.4 g/dL (2.2-3.9); M-Spike Not Observed g/dL (Not Observed)
--- NOTE | 2018-01-08 14:35 | CT ---
CT ARTERIOGRAM CHEST WITH IV CONTRAST AND 3D MIP IMAGING. HISTORY: Chest pain. Dyspnea. COMPARISON: 01/05/18. FINDINGS: There is good contrast opacification of pulmonary arteries and thoracic aorta with normal branching o f the great vessels. Bibasilar atelectasis is now apparent. No mediastinal adenopathy or evident of pneumothorax. Atherosclerosis of the arterial structures. Pancreatic inflammation is apparent on t he inferiormost images and better detailed on separate CT abdomen report. IMPRESSION: No CT evidence of pulmonary embolus. POS: [facility]
--- NOTE | 2018-01-08 14:39 | CT ---
CT ABDOMEN AND PELVIS WITH IV AND ORAL CONTRAST: HISTORY: Pancreatitis. Abdominal and chest pain. COMPARISON: 01/05/18. FINDINGS: Atelectasis is present at each lung base. Hepatic cysts and aortic calcification are again demonstra jamia. Inflammation within the fat surrounding the pancreatic tail has progressed slightly without abnormal enhancement of the pancreatic parenchyma. Fluid within the left abdomen extending along the left par acolic gutter has increased. Multiple nonobstructing bilateral renal calculi are now appearing, measuring up to 0.6 cm at the infe rior pole left kidney. Urinary collecting systems are decompressed. Degenerative changes lumbar spi ne. Bilateral hip prostheses. IMPRESSION: 1. Interval progression of CT findings of acute pancreatitis, with increased fluid. No complication is reliably demonstrated. 2. Small nonobstructing bilateral renal calculi. 3. Developing bibasilar lung atelectasis. POS: [facility]
[2018-01-08] MEDS ORDERED: ISOVUE-370 76%-LOCM 1 ML ONE (16:31)
[2018-01-08] MEDS ORDERED: Fenofibrate 48 MG TAB PO SCH (16:45)
[2018-01-08] MEDS: Acetaminophen 325 MG TAB PO PRN (17:55)
[2018-01-08 18:09] LABS: Bilirubin Negative (Negative); Blood, Urine Small (Negative); Clarity CLEAR (Clear); Glucose, Urine (Dipstick) Negative (Negative); Leukocyte Negative (Negative); Nitrite Negative (Negative); Protein, Urine (Dipstick) 30 mg/dL (Neg-Trace); Specific Gravity, Urine 1.027 (1.002-1.036); pH, Urine 7.5 (5.0-9.0)
[2018-01-08 18:11] LABS: Bacteria/HPF None Seen HPF (None Seen); Hyaline Casts/LPF 0-3 HYALINE CAST LPF (0-3 Hyaline); RBC/HPF 0-3 HPF (0-3); Squamous Epithelial None Seen HPF (0-3); WBC/HPF None Seen HPF (0-3)
[2018-01-08] MEDS: Atorvastatin Calcium 40 MG TAB PO SCH (20:25)
[2018-01-08] MEDS: Melatonin 3 MG TAB PO PRN (21:41)
[2018-01-09] MEDS: Sodium Chloride 0.9% 1,000 ML IV SCH ×2 (02:09→14:48)
[2018-01-09 04:54] LABS: #Eosinphils 0.3 thou/uL (0.0-0.7); #Lymphocytes 1.1 thou/uL (1.20-3.40); #Monocytes 0.6 thou/uL (0.11-0.59); #Neutrophils 6.6 thou/uL (1.40-6.50); %Basophils 0.4 % (0.0-1.0); %Eosinophils 3.2 % (0.0-10.0); %Lymphocytes 12.4 % (21.0-51.0); %Monocytes 6.8 % (0.0-10.0); %Neutrophils 77.3 % (42.0-75.0); Hemoglobin 10.9 g/dL (14.0-18.0); Mean Corpuscular HGB CONC 34.1 g/dL (32.0-36.0); Mean Corpuscular Hemoglobin 32.1 pg (27.0-31.0); Mean Corpuscular Volume 93.9 fl (80.0-94.0); Mean Platelet Volume 9.1 fL (7.4-10.4); Platelet Count 184 thou/uL (130-400); Red Blood Cell (RBC) Count 3.39 mill/uL (4.70-6.10); White Blood Cell (WBC) Count 8.6 thou/uL (4.8-10.8)
--- NOTE | 2018-01-09 04:59 | PDOC.FM ---
- Subjective Subjective: Patient reporting much improvement today in regard to pain and nausea. He denies hip pain today and reports he slept well. He did not use CPAP overnight because he reports mask does not fit well and is uncomfortable but did stay on o2 all night. No acute events overnight. - Objective MAR Reviewed: Yes Vital Signs & Weight: Vital Signs (12 hours) Temp Pulse Resp BP Pulse Ox 01/09/18 00:00 98.1 F 79 18 130/80 93 L 01/08/18 20:00 97.5 F L 70 18 165/76 H 96 01/08/18 18:33 99.2 F 01/08/18 17:54 100.2 F H Weight Weight 108.409 kg I&O: 01/07/18 01/08/18 01/09/18 06:59 06:59 06:59 Intake Total 2620 2070 Output Total 600 Balance 2620 1470 Result Diagrams: 01/09/18 03:36 01/09/18 03:36 <Nancy Pham - Last Filed: 01/09/18 09:43> - Objective Vital Signs & Weight: Vital Signs (12 hours) Temp Pulse Resp BP BP BP Pulse Ox 01/09/18 08:00 98.8 F 80 18 152/76 H 94 L 01/09/18 07:34 98.4 F 83 18 01/09/18 07:27 98.4 F 83 18 160/81 H 92 L 01/09/18 04:00 99.0 F 83 18 142/72 H 95 01/09/18 00:00 98.1 F 79 18 130/80 93 L Weight Weight 107.104 kg I&O: 01/08/18 01/09/18 01/10/18 06:59 06:59 06:59 Intake Total 2070 1140 Output Total 600 Balance 1470 1140 Result Diagrams: 01/09/18 03:36 01/09/18 03:36 <Mariel Carballo - Last Filed: 01/09/18 10:04> Phys Exam - Physical Examination Constitutional: NAD HEENT: moist MMs Respiratory: no wheezing, no rales, clear to auscultation bilateral Cardiovascular: RRR, no significant murmur Gastrointestinal: soft, non-tender, no distention, positive bowel sounds point ttp along pancreatic tail trace edema Neurological: moves all 4 limbs Psychiatric: normal affect, A&O x 3 <Nancy Pham - Last Filed: 01/09/18 09:43> Dx/Plan (1) Diabetes type 2, controlled Code(s): E11.9 - TYPE 2 DIABETES MELLITUS WITHOUT COMPLICATIONS Status: Acute (2) HTN (hypertension) Code(s): I10 - ESSENTIAL (PRIMARY) HYPERTENSION Status: Acute (3) History of coronary artery bypass graft Status: Acute (4) Hypertriglyceridemia Code(s): E78.1 - PURE HYPERGLYCERIDEMIA Status: Acute (5) Pancreatitis Code(s): K85.90 - ACUTE PANCREATITIS WITHOUT NECROSIS OR INFECTION, UNSP Status: Acute (6) YONIS (acute kidney injury) Code(s): N17.9 - ACUTE KIDNEY FAILURE, UNSPECIFIED Status: Acute (7) Fall Code(s): W19.XXXA - UNSPECIFIED FALL, INITIAL ENCOUNTER Status: Acute (8) Hip pain Code(s): M25.559 - PAIN IN UNSPECIFIED HIP Status: Acute (9) Constipation Code(s): K59.00 - CONSTIPATION, UNSPECIFIED Status: Acute - Plan Plan: Acute Pancreatitis 2/2 Hypertriglyceridemia - tri 2525--> 1468--> 1140--> 847 today - RUQ u/s negative for stones - NPO with water allowed, reports increased pain when eating broths, will increase to clears this evening but stay away from broths - continue statin and fibrate - GI consulted, appreciate recs Newly diagnosed Diastolic CHF - echo with normal EF, but suggestive of diastolic dysfunction - continue gentle hydration with NS at 75ml/hr - closely monitor fluid status S/P Fall - hip xray wnl, no pain today - d/c'd ambien Hx of CAD - CABG in 2010 - trop negative - continue ASA, statin YONIS - Improving despite contrast yesterday - continue gentle fluids Constipation, resolved - BM yesterday HTN - continue home meds - elevated but could be due to pain - will continue to trend and consider adding another agent DM2 - home Glipizide - has been elevated in the 190's -200's here - continue mild SSI Elevated Protein - SPEP and UPEP pending - patient reports hx of back pain that is currently being worked up outpatient LETY on CPAP at home - refused CPAP overnight, did well on O2. <Nancy Pham - Last Filed: 01/09/18 09:43> (1) Pancreatitis Code(s): K85.90 - ACUTE PANCREATITIS WITHOUT NECROSIS OR INFECTION, UNSP Status: Acute (2) Hypertriglyceridemia Code(s): E78.1 - PURE HYPERGLYCERIDEMIA Status: Acute (3) History of coronary artery bypass graft Status: Acute (4) HTN (hypertension) Code(s): I10 - ESSENTIAL (PRIMARY) HYPERTENSION Status: Acute (5) Gout Code(s): M10.9 - GOUT, UNSPECIFIED Status: Acute (6) Diabetes type 2, controlled Code(s): E11.9 - TYPE 2 DIABETES MELLITUS WITHOUT COMPLICATIONS Status: Acute <Mariel Carballo - Last Filed: 01/09/18 10:04> Attending Addendum - Attending Addendum Date/Time: 01/09/18 1003 I personally evaluated the patient and discussed the management with Dr. Pham. I agree with the History, Examination, Assessment and Plan documented above with any addition or exceptions noted below. The patient is feeling better. He still has abdominal pain but it is slowly improving. Will continue npo status until this evening. Triglycerides are down to the 800's. <Mariel Carballo - Last Filed: 01/09/18 10:04>
[2018-01-09 05:11] LABS: ALT (SGPT) 16 U/L (8-55); AST (SGOT) 18 U/L (5-34); Albumin 3.4 g/dL (3.4-4.8); Alkaline Phosphatase 116 U/L (40-150); Anion Gap 13 mmol/L (10-20); BUN (Urea Nitrogen) 9 mg/dL (8.4-25.7); Calc. Creatinine Clearance 108 mL/min (70-130); Calcium 8.6 mg/dL (7.8-10.44); Carbon Dioxide 25 mmol/L (23-31); Cardiac Risk 26.2 (Less than 4.5); Chloride 100 mmol/L (98-107); Cholesterol 262 mg/dl (< 200 Desired); Estimated GFR-MDRD 68; Globulin 3.1 g/dL (2.4-3.5); Glucose 130 mg/dL (80-115); HDL Cholesterol 10 mg/dL (>60 Neg Risk); Lipase 70 U/L (8-78); Potassium 3.6 mmol/L (3.5-5.1); Protein, Total 6.5 g/dL (5.8-8.1); Sodium 134 mmol/L (136-145); Triglycerides 847 mg/dL (Less than 150)
[2018-01-09] MEDS: Fish Oil 1,000 MG CAP PO SCH (07:30)
[2018-01-09] MEDS: Amlodipine 5 MG TAB PO SCH (07:30)
[2018-01-09] MEDS: Docusate 100 MG CAP PO SCH ×2 (07:30→20:21)
[2018-01-09] MEDS: glipiZIDE 5 MG TAB PO SCH (07:30)
[2018-01-09] MEDS: Enoxaparin Sodium 40 MG/0.4 ML SYRINGE SC SCH (07:30)
[2018-01-09] MEDS: Allopurinol 300 MG TAB PO SCH (07:30)
[2018-01-09] MEDS: Fenofibrate 48 MG TAB PO SCH (07:31)
[2018-01-09] MEDS: Spironolactone 25 MG TAB PO SCH (07:31)
--- NOTE | 2018-01-09 08:16 | CON ---
DATE OF SERVICE: 01/08/2018 REASON FOR CONSULTATION: Pancreatitis. HISTORY OF PRESENT ILLNESS: Mr. Reyes is a pleasant 62-year-old gentleman who came to the hospital on the 6th with epigastric pain, left upper quadrant pain which he has not ever had before. It is aching, feels like pressure on his left ribs, it radiated to the back initially, but does not now. He has some nausea and vomiting. He had a CAT scan that showed some fat stranding around the tail of the pancreas. He had normal liver function tests, AST and ALT are 40 and 41, alkaline phosphatase of 102, bilirubin of 0.7. His lipase was 626, albumin 4. White count was 13.4, hemoglobin was 12.7, platelets are 257,000. He was started on IV fluid resuscitation and made n.p.o. He had a CAT scan that showed some stranding in the tail of pancreas. Remainder of the pancreas is normal. No masses or cysts in the liver and some fatty liver. Ultrasound performed showed no signs of gallstones. He was found to have hypertriglyceridemia and history is noted in the past with levels up to 7000 at the [facility]. Difficult to control and it has come down from 2525 to 1148 today. Last night, he had some issues with shortness of breath and worsening left upper quadrant pain, restricting his breath, and he had a repeat CAT scan today which showed some increase fluid stranding in the left pericolic gutter on the pancreas, but well perfused pancreas. No signs of necrosis. He had a CT scan of chest to rule out PE, which was negative as well. He did have a fall last night, trying to get out of bed to urinate feels well regard to that, hip x- ray was negative. Presently, he is resting comfortably in bed. He has an appetite. He is mildly nauseated. He is voiding well. PAST MEDICAL HISTORY: Notable for hyperlipidemia, hypertriglyceridemia. He has coronary artery disease with previous CABG. He has diabetes, the A1c that runs around 6, history at the [place]. He has history of hypertriglyceridemia for which he has been on statins, fish oil and TriCor. Gout. PAST SURGICAL HISTORY: Includes hip replacement and coronary artery bypass grafting. FAMILY HISTORY: No family history of pancreatic disease or cystic fibrosis. HOME MEDICATIONS: Allopurinol, amlodipine, aspirin, Calciferol, fish oil, metoprolol, multivitamin, omeprazole, spironolactone, glipizide, Atarax p.r.n. He has not had any new medications or does not takes any herbs or vitamins. SOCIAL HISTORY: Negative for drugs, tobacco. Alcohol as noted above. ALLERGIES: None known. PRESENT MEDICATIONS: Here Tylenol p.r.n., allopurinol, Norvasc, chewable aspirin 81 day, Lipitor, bisacodyl, Colace, Lovenox, TriCor 48 p.o. daily, fish oil, Glucotrol, Lorraine p.r.n., Humalog sliding scale, Lopressor, morphine, Zofran , normal saline at 75 an hour, Aldactone 25. Intraoperatively, he received about 5 L of fluid since admission. Urine output is not recorded. PHYSICAL EXAMINATION: VITAL SIGNS: T-max 100.2 earlier today, presently 97.9; pulse 70; blood pressure 165/76. GENERAL: Sitting up on the bed, playing cards. His daughter is in the room with him. He is in good spirits. He is in no distress. HEENT: Oropharynx without lesions. Mucous membranes are pink and moist. LUNGS: Clear except for decreased breath sounds at right base. HEART: Regular rate and rhythm. ABDOMEN: Slight protuberant, is tender in the left upper quadrant with voluntary guarding, but no rebound. Lower abdomen is nontender. EXTREMITIES: No clubbing, cyanosis, or edema. SKIN: Without rash or lesions. There is no spider angiomas or scleral icterus. LABORATORY STUDIES: Today, sodium 132, BUN and creatinine are 9 and 1.18 down from 1.32 on admission, glucose 145. Hemoglobin A1c on admission was 6.1, bilirubin is 1.2, AST 42, ALT 21, alkaline phosphatase 98, total protein 7.8, albumin 3.4, globulin is 4.4. Triglycerides today 1148. Cholesterol 303. Lipase is 623 on admission, it was 263 yesterday. A CAT scan films reviewed. ASSESSMENT: 1. Pancreatitis, likely secondary to hypertriglyceridemia, although he has not ever had in the past which is a little bit odd. I started new medications account for this, he is not to drink excessive amounts of alcohol, does not have any gallstones. Liver tests go against any biliary pancreatitis. He has got a slightly elevated globulin gap and differential diagnosis. Autoimmune pancreatitis can be considered; however, the CAT scan does not show atypical appearance of that. 2. He seems to have been well resuscitated, in fact he got a little bit short of breath and probably a little bit of pulmonary edema with resuscitation, it has dropped with slight effusion. There is some fluid in the left pericolic gutter at this time. The pancreas does appear to perfuse in this recent study and I think this is just relation to his resuscitation. 3. Hypertriglyceridemia, not optimally controlled. RECOMMENDATIONS: 1. We will check IgG subclass type 4 and ARABELLA to evaluate for possible autoimmune pancreatitis. 2. We will check a lipase tomorrow. If still trending downward, we will let him start liquids. 3. I would recommend aggressive control of hypertriglyceridemia. This could be done with insulin or consider consulting Endocrinology or Cardiology to aid, assistance with hypertriglyceridemia. 4. Make sure we will follow along with you with regard to the pancreatitis. He seems to be doing well with stable hemoglobin, stable renal function and good resuscitation. CHRISTOPHE
[2018-01-09] MEDS ORDERED: Metoprolol Tartrate 100 MG TAB PO SCH (09:00)
[2018-01-09] MEDS ORDERED: Bisacodyl 5 MG TAB PO PRN (13:03)
--- NOTE | 2018-01-09 16:19 | PRG ---
DATE OF SERVICE: 01/09/2018 SUBJECTIVE: Mr. Reyes states he feels much better today than yesterday. Still has some discomfort. He is hungry. He wants to eat a hamburger. MEDICATIONS: Unchanged from yesterday. PHYSICAL EXAMINATION: VITAL SIGNS: Temperature is 98.8, pulse 80, respirations 18, blood pressure 152/76. ABDOMEN: Soft, mildly tender in left upper quadrant, less so today than yesterday. There is no rebo und or guarding. LABORATORY STUDIES: White count 8.6, hemoglobin 10.0, platelet count 184. Sodium 134, potassium 3.6 , BUN and creatinine 9 and 1.1. Triglycerides are down to 247. Lipase is 70. ASSESSMENT: Pancreatitis, likely related to hypertriglyceridemia. Serologic evaluation for autoimmu ne pancreatitis is ordered and pending. RECOMMENDATIONS: 1. As he has tolerated clears this morning, I would advance him to full liquid diet, monitor closely . 2. Continue aggressive treatment of his hypertriglyceridemia.
[2018-01-09] MEDS: Acetaminophen 325 MG TAB PO PRN (17:26)
[2018-01-09] MEDS: Atorvastatin Calcium 40 MG TAB PO SCH (20:21)
[2018-01-09] MEDS: Metoprolol Tartrate 100 MG TAB PO SCH (20:21)
[2018-01-10] MEDS: Melatonin 3 MG TAB PO PRN (00:25)
[2018-01-10] MEDS: Sodium Chloride 0.9% 1,000 ML IV SCH (04:12)
--- NOTE | 2018-01-10 06:58 | PDOC.FM ---
- Subjective Subjective: Patient was advanced to full liquid diet yesterday evening and reports he again feels bad, but he doesn't think its related to eating. He describes cramping abdominal pain. He thought it was constipation but did not resolve with BM. He did have a 100.4 fever overnight but doesn't recall feeling feverish. Denies cough, congestion, dysuria. - Objective MAR Reviewed: Yes Vital Signs & Weight: Vital Signs (12 hours) Temp Pulse Resp BP Pulse Ox 01/10/18 05:05 98.4 F 74 18 148/77 H 96 01/10/18 00:15 100.4 F H 74 18 156/70 H 92 L 01/09/18 20:00 97.9 F 81 20 01/09/18 19:49 97.9 F 81 20 146/72 H 95 Weight Weight 105.596 kg I&O: 01/08/18 01/09/18 01/10/18 06:59 06:59 06:59 Intake Total 2070 1140 720 Output Total 600 Balance 1470 1140 720 Result Diagrams: 01/09/18 03:36 01/09/18 03:36 <Nancy Pham - Last Filed: 01/10/18 07:46> - Objective Vital Signs & Weight: Vital Signs (12 hours) Temp Pulse Resp BP BP Pulse Ox 01/10/18 12:46 157/66 H 01/10/18 08:00 98.2 F 78 18 93 L 01/10/18 07:31 98.2 F 78 18 152/93 H 93 L 01/10/18 05:05 98.4 F 74 18 148/77 H 96 Weight Weight 105.596 kg I&O: 01/09/18 01/10/18 01/11/18 06:59 06:59 06:59 Intake Total 1140 720 Balance 1140 720 Result Diagrams: 01/09/18 03:36 01/10/18 07:27 <Mariel Carballo - Last Filed: 01/10/18 15:40> Phys Exam - Physical Examination Constitutional: NAD Respiratory: no wheezing, no rales, clear to auscultation bilateral Cardiovascular: RRR, no significant murmur Gastrointestinal: no distention, positive bowel sounds guarded, ttp along LUQ at tail end of pancreas, no rebound Musculoskeletal: pulses present trace edema Neurological: moves all 4 limbs Psychiatric: A&O x 3 <Nancy hPam - Last Filed: 01/10/18 07:46> Dx/Plan (1) Diabetes type 2, controlled Code(s): E11.9 - TYPE 2 DIABETES MELLITUS WITHOUT COMPLICATIONS Status: Acute (2) HTN (hypertension) Code(s): I10 - ESSENTIAL (PRIMARY) HYPERTENSION Status: Acute (3) History of coronary artery bypass graft Status: Acute (4) Hypertriglyceridemia Code(s): E78.1 - PURE HYPERGLYCERIDEMIA Status: Acute (5) Pancreatitis Code(s): K85.90 - ACUTE PANCREATITIS WITHOUT NECROSIS OR INFECTION, UNSP Status: Acute (6) YONIS (acute kidney injury) Code(s): N17.9 - ACUTE KIDNEY FAILURE, UNSPECIFIED Status: Acute (7) Fall Code(s): W19.XXXA - UNSPECIFIED FALL, INITIAL ENCOUNTER Status: Acute (8) Hip pain Code(s): M25.559 - PAIN IN UNSPECIFIED HIP Status: Acute (9) Constipation Code(s): K59.00 - CONSTIPATION, UNSPECIFIED Status: Acute - Plan Plan: Acute Pancreatitis 2/2 Hypertriglyceridemia - tri 2525--> 1468--> 1140--> 847--> todays value pending - lipase trended down from 600's to 60's - ARABELLA and IgG subclass 4 pending to evaluate for autoimmune cause - RUQ u/s negative for stones - Full liquid diet and advance as tolerated - continue statin and fibrate - GI consulted, appreciate recs - morphine for pain Fever - blood cx/urine cx and CXR pending Newly diagnosed Diastolic CHF - echo with normal EF, but suggestive of diastolic dysfunction - continue gentle hydration with NS at 75ml/hr - closely monitor fluid status Hx of CAD - CABG in 2010 - trop negative - continue ASA, statin YONIS - todays value pending, improved from admission - continue gentle fluids Constipation, resolved - BM yesterday HTN - continue home meds - elevated but could be due to pain - will continue to trend and consider adding another agent DM2 - home Glipizide - continue mild SSI Elevated Protein - SPEP and UPEP pending - patient reports hx of back pain that is currently being worked up outpatient LETY on CPAP at home - refused CPAP overnight, did well on O2. <Nancy Pham - Last Filed: 01/10/18 07:46> (1) Pancreatitis Code(s): K85.90 - ACUTE PANCREATITIS WITHOUT NECROSIS OR INFECTION, UNSP Status: Acute (2) Hypertriglyceridemia Code(s): E78.1 - PURE HYPERGLYCERIDEMIA Status: Acute (3) History of coronary artery bypass graft Status: Acute (4) HTN (hypertension) Code(s): I10 - ESSENTIAL (PRIMARY) HYPERTENSION Status: Acute (5) Gout Code(s): M10.9 - GOUT, UNSPECIFIED Status: Acute (6) Diabetes type 2, controlled Code(s): E11.9 - TYPE 2 DIABETES MELLITUS WITHOUT COMPLICATIONS Status: Acute <Mariel Carballo - Last Filed: 01/10/18 15:40> Attending Addendum - Attending Addendum Date/Time: 01/10/18 1621 I personally evaluated the patient and discussed the management with Dr. Pham. I agree with the History, Examination, Assessment and Plan documented above with any addition or exceptions noted below. Pt with fever overnight. Pt notes to Dr. Pham and I that his abdominal pain has not improved since yesterday. Will repeat cultures, blood and urine and check CXR. Triglycerides continues to decrease with IV fluids. <Mariel Carballo - Last Filed: 01/10/18 15:40>
[2018-01-10] MEDS: Fenofibrate 48 MG TAB PO SCH (07:50)
[2018-01-10] MEDS: Spironolactone 25 MG TAB PO SCH (07:50)
[2018-01-10] MEDS: Docusate 100 MG CAP PO SCH ×2 (07:50→20:37)
[2018-01-10] MEDS: Fish Oil 1,000 MG CAP PO SCH (07:50)
[2018-01-10] MEDS: Enoxaparin Sodium 40 MG/0.4 ML SYRINGE SC SCH (07:50)
[2018-01-10] MEDS: glipiZIDE 5 MG TAB PO SCH (07:50)
[2018-01-10] MEDS: Allopurinol 300 MG TAB PO SCH (07:51)
[2018-01-10] MEDS: Amlodipine 5 MG TAB PO SCH (07:51)
[2018-01-10] MEDS: Metoprolol Tartrate 100 MG TAB PO SCH ×2 (07:51→20:37)
[2018-01-10 08:12] LABS: ALT (SGPT) 29 U/L (8-55); AST (SGOT) 44 U/L (5-34); Albumin 3.4 g/dL (3.4-4.8); Alkaline Phosphatase 182 U/L (40-150); Anion Gap 15 mmol/L (10-20); BUN (Urea Nitrogen) 8 mg/dL (8.4-25.7); Bilirubin, Total 1.1 mg/dL (0.2-1.2); Calc. Creatinine Clearance 100 mL/min (70-130); Calcium 9.1 mg/dL (7.8-10.44); Carbon Dioxide 21 mmol/L (23-31); Cardiac Risk 26.5 (Less than 4.5); Chloride 101 mmol/L (98-107); Cholesterol 265 mg/dl (< 200 Desired); Estimated GFR-MDRD 64; Globulin 3.8 g/dL (2.4-3.5); Glucose 156 mg/dL (80-115); HDL Cholesterol 10 mg/dL (>60 Neg Risk); Lipase 100 U/L (8-78); Protein, Total 7.2 g/dL (5.8-8.1); Sodium 133 mmol/L (136-145); Triglycerides 711 mg/dL (Less than 150)
--- NOTE | 2018-01-10 09:50 | RAD ---
CHEST 2 VIEWS: HISTORY: Fever. Dyspnea. COMPARISON: 01/08/18. FINDINGS: The cardiac silhouette is unremarkable. Pulmonary vasculature upper limits of normal. Infiltrate at the left base has progressed slightly with evidence of left pleural fluid. Mediastinum midline with aortic calcification and postoperative changes. IMPRESSION: Worsening left basilar infiltrate. Clinical correlation regarding other signs and symptoms of left b asilar pneumonitis is required. Left pleural fluid has increased. Please consider radiographic foll owup after medical treatment to evaluate for clearing. POS: [facility]
[2018-01-10] MEDS ORDERED: Furosemide 20 MG/2 ML VIAL SLOW IVP SCH (12:00)
--- NOTE | 2018-01-10 13:05 | PRG ---
DATE OF SERVICE: 01/10/2018 SUBJECTIVE: Mr. Benson is talking on the phone when I came into the room. He is in no distress. He states he feels the same as yesterday. He has got some pressure-like discomfort in the upper abdomen . OBJECTIVE: VITAL SIGNS: He has been afebrile, T-max 100.4, blood pressure 152/93, pulse 78, respirations 18, O2 sat 93%. LUNGS: Decreased breath sounds at right base. GENERAL: He still looks a little bit peaked. ABDOMEN: Slightly protuberant. There is no shifting dullness or fluid wave. Bowel sounds are quies cent, but present. There is mild tenderness in the upper abdomen, especially in the left, but this i s mild. There is no rebound or guarding. X-RAY FINDINGS: X-ray of the chest reveals a left pleural effusion. ASSESSMENT: Left effusion versus left lower lobe pneumonia. LABORATORY STUDIES: White count is 8.6, hemoglobin 10.9, and platelet count 184. Sodium 133, potass ium 4, BUN and creatinine are 8 and 1.6, AST and ALT are 44 and 29, alkaline phosphatase 182. Trigly cerides 711, cholesterol 265. Lipase 100. ASSESSMENT AND PLAN: 1. The patient is very hungry. I think his abdominal discomfort is more related to some of the fide pancreatic fluid and his effusion versus pneumonia in left lower abdomen. This is more likely effusi on. He does not have high fever. A slight bump in lipase to 100 is not concerning to me. Clinicall y with a good appetite, I would place him back on full liquids, low fat. 2. I will give him one time dose of 20 mg of Lasix IV. If he is tolerating liquids, I will Hep-Lock his IV. I have discussed with Res[facility].
[2018-01-10] MEDS: Acetaminophen 325 MG TAB PO PRN (16:33)
[2018-01-10] MEDS: HumaLOG 300 UNITS/3 ML VIAL SC PRN (18:05)
[2018-01-10] MEDS: Atorvastatin Calcium 40 MG TAB PO SCH (20:37)
[2018-01-11] MEDS ORDERED: Doxylamine 25 MG TAB PO SCH (03:30)
[2018-01-11 04:38] LABS: ALT (SGPT) 50 U/L (8-55); AST (SGOT) 64 U/L (5-34); Albumin 3.7 g/dL (3.4-4.8); Alkaline Phosphatase 238 U/L (40-150); Anion Gap 15 mmol/L (10-20); BUN (Urea Nitrogen) 9 mg/dL (8.4-25.7); Bilirubin, Total 1.2 mg/dL (0.2-1.2); Calc. Creatinine Clearance 96 mL/min (70-130); Calcium 9.5 mg/dL (7.8-10.44); Carbon Dioxide 23 mmol/L (23-31); Cardiac Risk 31.9 (Less than 4.5); Chloride 98 mmol/L (98-107); Cholesterol 287 mg/dl (< 200 Desired); Estimated GFR-MDRD 61; Globulin 3.9 g/dL (2.4-3.5); Glucose 159 mg/dL (80-115); HDL Cholesterol 9 mg/dL (>60 Neg Risk); Potassium 3.7 mmol/L (3.5-5.1); Protein, Total 7.6 g/dL (5.8-8.1); Sodium 132 mmol/L (136-145); Triglycerides 735 mg/dL (Less than 150)
--- NOTE | 2018-01-11 06:40 | PDOC.FM ---
- Subjective Subjective: Patient reports a terrible night. He states he was unable to sleep at all. He reports his pain is about the same. He tolerated potato soup and cream of wheat yesterday. He continues to report some nausea but has had no vomiting. He was afebrile overnight. - Objective MAR Reviewed: Yes Vital Signs & Weight: Vital Signs (12 hours) Temp Pulse Resp BP Pulse Ox 01/11/18 04:00 98.2 F 70 20 162/73 H 93 L 01/11/18 01:05 99.0 F 70 22 H 160/78 H 96 01/10/18 20:29 98.2 F 71 22 H 141/70 H 93 L 01/10/18 20:00 98.2 F 71 22 H 93 L Weight Weight 106.236 kg I&O: 01/09/18 01/10/18 01/11/18 06:59 06:59 06:59 Intake Total 2493 059 6502 Output Total 650 Balance 1140 720 535 Result Diagrams: 01/11/18 03:54 01/11/18 03:43 Phys Exam - Physical Examination Constitutional: NAD sitting up in bed HEENT: moist MMs Respiratory: no wheezing, no rales, clear to auscultation bilateral mild increase in work of breathing Cardiovascular: RRR, no significant murmur Gastrointestinal: soft some guarding present and ttp along tail of pancreas, otherwise no ttp Musculoskeletal: no edema Neurological: moves all 4 limbs Psychiatric: A&O x 3 Dx/Plan (1) Diabetes type 2, controlled Code(s): E11.9 - TYPE 2 DIABETES MELLITUS WITHOUT COMPLICATIONS Status: Acute (2) HTN (hypertension) Code(s): I10 - ESSENTIAL (PRIMARY) HYPERTENSION Status: Acute (3) History of coronary artery bypass graft Status: Acute (4) Hypertriglyceridemia Code(s): E78.1 - PURE HYPERGLYCERIDEMIA Status: Acute (5) Pancreatitis Code(s): K85.90 - ACUTE PANCREATITIS WITHOUT NECROSIS OR INFECTION, UNSP Status: Acute (6) YONIS (acute kidney injury) Code(s): N17.9 - ACUTE KIDNEY FAILURE, UNSPECIFIED Status: Acute (7) Fall Code(s): W19.XXXA - UNSPECIFIED FALL, INITIAL ENCOUNTER Status: Acute (8) Hip pain Code(s): M25.559 - PAIN IN UNSPECIFIED HIP Status: Acute (9) Constipation Code(s): K59.00 - CONSTIPATION, UNSPECIFIED Status: Acute (10) Diastolic heart failure Code(s): I50.30 - UNSPECIFIED DIASTOLIC (CONGESTIVE) HEART FAILURE Status: Acute - Plan Plan: Acute Pancreatitis 2/2 Hypertriglyceridemia - Patient with stable condition, no worsening, no improvement. Continue to feed with full liquid diet. - tri 2525--> 1468--> 1140--> 847--> 711--> 735 - lipase uptrended overnight, now 115 - ARABELLA and IgG subclass 4 pending to evaluate for autoimmune cause - RUQ u/s negative for stones - continue statin and fibrate - GI consulted, appreciate recs - morphine for pain - continue gentle IVF Fever - fever to 100.4 on 01/10 - blood cx/urine cx - CXR showed possible LLL infiltrate vs pleural effusion - procal pending - no fever's overnight Newly diagnosed Diastolic CHF - echo with normal EF, but suggestive of diastolic dysfunction - CXR with pleural effusion and patient with increased work of breathing, will give one time lasix 20IV - BNP decreased but not back to baseline - continue gentle hydration with NS at 75ml/hr - closely monitor fluid status - strict IO, daily wt Hx of CAD - CABG in 2010 - trop negative - continue ASA, statin YONIS - likely 2/2 Lasix - continue gentle fluids HTN - continue amlodipine - increase spironolactone to 50mg daily DM2 - home Glipizide - continue mild SSI Elevated Protein - SPEP and UPEP wnl LETY on CPAP at home - refused CPAP overnight, did well on O2.
[2018-01-11 06:55] LABS: #Basophils 0.1 thou/uL (0.0-0.2); #Eosinphils 0.3 thou/uL (0.0-0.7); #Lymphocytes 1.5 thou/uL (1.20-3.40); #Monocytes 0.9 thou/uL (0.11-0.59); %Basophils 0.7 % (0.0-1.0); %Eosinophils 2.2 % (0.0-10.0); %Monocytes 7.3 % (0.0-10.0); %Neutrophils 77.8 % (42.0-75.0); Hemoglobin 12.1 g/dL (14.0-18.0); Mean Corpuscular HGB CONC 33.8 g/dL (32.0-36.0); Mean Corpuscular Hemoglobin 31.9 pg (27.0-31.0); Mean Corpuscular Volume 94.4 fl (80.0-94.0); Mean Platelet Volume 9.2 fL (7.4-10.4); Platelet Count 243 thou/uL (130-400); RBC Distribution Width 13.3 % (11.5-14.5); Red Blood Cell (RBC) Count 3.81 mill/uL (4.70-6.10); White Blood Cell (WBC) Count 12.8 thou/uL (4.8-10.8)
[2018-01-11] MEDS: Docusate 100 MG CAP PO SCH ×2 (08:38→20:00)
[2018-01-11] MEDS: Allopurinol 300 MG TAB PO SCH (08:39)
[2018-01-11] MEDS: Amlodipine 5 MG TAB PO SCH (08:39)
[2018-01-11] MEDS: Fish Oil 1,000 MG CAP PO SCH (08:39)
--- NOTE | 2018-01-11 08:39 | RAD ---
PA AND LATERAL VIEWS OF CHEST: Date: 01/11/18 HISTORY: Fever, dyspnea. FINDINGS/IMPRESSION: Comparison made with exam from previous day. Changes of median sternotomy are again seen. The heart size is enlarged. There is mild interval impro vement in the left basilar infiltrate and effusion since the previous day's exam. POS: [facility]
[2018-01-11] MEDS: Metoprolol Tartrate 100 MG TAB PO SCH ×2 (08:40→20:01)
[2018-01-11] MEDS: glipiZIDE 5 MG TAB PO SCH (08:40)
[2018-01-11] MEDS: Spironolactone 25 MG TAB PO SCH (08:40)
[2018-01-11] MEDS: Enoxaparin Sodium 40 MG/0.4 ML SYRINGE SC SCH (08:42)
[2018-01-11] MEDS: Fenofibrate 48 MG TAB PO SCH (08:45)
[2018-01-11] MEDS ORDERED: Furosemide 20 MG/2 ML VIAL SLOW IVP SCH (08:45)
[2018-01-11] MEDS ORDERED: Furosemide 20 MG TAB PO SCH (09:00)
[2018-01-11 09:46] LABS: ANA Symphony (Qualitative) Negative (Negative); dsDNA IgG Antibody 0.9 IU/mL (<10 Negative)
[2018-01-11] MEDS: HYDROcodone/Acetaminophen 10/325 mg Tablet PO PRN ×2 (11:54→19:58)
--- NOTE | 2018-01-11 15:35 | ADD-PRG ---
ADDENDUM DATE OF SERVICE: 01/11/2018 This is an addendum to the note of Dr. Nancy Pham. Mr. Benson is a pleasant 62-year-old white male patient, who was admitted with acute pancreatitis seco ndary to significant hypertriglyceridemia. His triglycerides on admission were in excess of 2500 and he has a history of triglycerides in excess of 7000, but no prior history of pancreatitis. He is fr om the Agency and after discharge from our hospital and will follow up in [place]. In the event, cli nically today he looks and feels much better. He is having only minimal pain. Occasional mild nause a, but otherwise tolerating a full liquid diet. He is ready on fenofibrate and a statin. I advised him to seek consultation with centrifugal chiller technician when he returns to the Agency to see if there is someth ing else we can do about his very high triglyceride level in order to prevent future episodes of acut e pancreatitis.
[2018-01-11] MEDS ORDERED: Doxylamine 25 MG TAB PO PRN (18:41)
--- NOTE | 2018-01-11 19:06 | PRG ---
DATE OF SERVICE: 01/11/2018 SUBJECTIVE: Mr. Reyes states he had a bad night last time. He took morphine, it really helped him up. His pain was much better. He is tolerating full liquids. PHYSICAL EXAMINATION: VITAL SIGNS: T-max 100.1, T-current 98, pulse 69, and blood pressure 175/93. LUNGS: Clear. HEART: Regular rate and rhythm without clicks or murmurs. ABDOMEN: Soft, nontender, without rebound or guarding. Slightly protuberant. LABORATORY STUDIES: White count 12.8, hemoglobin 12, platelet count 243. AST 64, ALT 238, triglycer ides 735. Lipase 115. IgG subclass 4 pending. ASSESSMENT: 1. Pancreatitis, presumptively from hypertriglyceridemia, improving. 2. Atelectasis versus pneumonia, left lower lung. RECOMMENDATIONS: Low fat diet.
[2018-01-11] MEDS: Atorvastatin Calcium 40 MG TAB PO SCH (20:00)
--- NOTE | 2018-01-12 06:09 | PDOC.FM ---
- Subjective Subjective: Patient reports he is feeling better today. He ate fish for dinner and tolerated it well. He reports feeling feverish although no true fevers overnight. His pain is about the same but his nausea has decreased. No acute events overnight. - Objective MAR Reviewed: Yes Vital Signs & Weight: Vital Signs (12 hours) Temp Pulse Resp BP Pulse Ox 01/12/18 04:39 98.3 F 75 20 165/77 H 94 L 01/11/18 20:00 99.0 F 85 20 162/83 H 93 L 01/11/18 19:59 98.9 F 85 20 94 L Weight Weight 106.236 kg I&O: 01/10/18 01/11/18 01/12/18 06:59 06:59 06:59 Intake Total 720 1185 880 Output Total 650 1900 Balance 720 535 -1020 Result Diagrams: 01/12/18 06:22 01/12/18 06:22 Phys Exam - Physical Examination Constitutional: NAD Respiratory: no wheezing, no rales, clear to auscultation bilateral Cardiovascular: RRR, no significant murmur Gastrointestinal: soft ttp along pancreatic tail, no rebound or guarding Musculoskeletal: no edema, pulses present Neurological: moves all 4 limbs Psychiatric: normal affect, A&O x 3 Skin: cap refill <2 seconds Dx/Plan (1) Diabetes type 2, controlled Code(s): E11.9 - TYPE 2 DIABETES MELLITUS WITHOUT COMPLICATIONS Status: Acute (2) HTN (hypertension) Code(s): I10 - ESSENTIAL (PRIMARY) HYPERTENSION Status: Acute (3) History of coronary artery bypass graft Status: Acute (4) Hypertriglyceridemia Code(s): E78.1 - PURE HYPERGLYCERIDEMIA Status: Acute (5) Pancreatitis Code(s): K85.90 - ACUTE PANCREATITIS WITHOUT NECROSIS OR INFECTION, UNSP Status: Acute (6) YONIS (acute kidney injury) Code(s): N17.9 - ACUTE KIDNEY FAILURE, UNSPECIFIED Status: Acute (7) Fall Code(s): W19.XXXA - UNSPECIFIED FALL, INITIAL ENCOUNTER Status: Acute (8) Hip pain Code(s): M25.559 - PAIN IN UNSPECIFIED HIP Status: Acute (9) Constipation Code(s): K59.00 - CONSTIPATION, UNSPECIFIED Status: Acute (10) Diastolic heart failure Code(s): I50.30 - UNSPECIFIED DIASTOLIC (CONGESTIVE) HEART FAILURE Status: Acute - Plan Plan: Acute Pancreatitis 2/2 Hypertriglyceridemia - Patient with mprovement overnight. Tolerating regular diet - tri 2525--> 1468--> 1140--> 847--> 711--> 735 --> 687 - ARABELLA and IgG subclass 4 pending to evaluate for autoimmune cause - RUQ u/s negative for stones - continue statin and fibrate - GI consulted, appreciate recs - PO [place] for pain Fever - fever to 100.4 on 01/10 - blood cx/urine cx - CXR showed possible LLL infiltrate vs pleural effusion - procal 0.35 - no fever's overnight - likely atelectasis and pleural effusion Diastolic Dysfunction - echo with normal EF, but suggestive of diastolic dysfunction - Give lasix as needed for diuresis - closely monitor fluid status - strict IO, daily wt Hx of CAD - CABG in 2010 - trop negative - continue ASA, statin YONIS - likely 2/2 Lasix HTN - continues to be elvated despite medication change yesterday, continue to monitor - continue amlodipine and spironolactone 50mg daily DM2 - home Glipizide - continue mild SSI - well controlled Elevated Protein - SPEP and UPEP wnl LETY on CPAP at home - refused CPAP overnight, did well on O2. Dispo: likely d/c home today or tomorrow with close f/u and recommendations to see an insurance auditor for triglyceride treatment.
[2018-01-12 06:31] LABS: #Basophils 0.1 thou/uL (0.0-0.2); #Eosinphils 0.3 thou/uL (0.0-0.7); #Lymphocytes 1.8 thou/uL (1.20-3.40); #Monocytes 1.3 thou/uL (0.11-0.59); %Basophils 0.6 % (0.0-1.0); %Eosinophils 2.2 % (0.0-10.0); %Lymphocytes 13.1 % (21.0-51.0); %Monocytes 9.7 % (0.0-10.0); %Neutrophils 74.5 % (42.0-75.0); Hemoglobin 12.3 g/dL (14.0-18.0); Mean Corpuscular HGB CONC 34.1 g/dL (32.0-36.0); Mean Corpuscular Hemoglobin 32.1 pg (27.0-31.0); Mean Corpuscular Volume 94.3 fl (80.0-94.0); Mean Platelet Volume 9.1 fL (7.4-10.4); Platelet Count 250 thou/uL (130-400); RBC Distribution Width 13.4 % (11.5-14.5); Red Blood Cell (RBC) Count 3.84 mill/uL (4.70-6.10); White Blood Cell (WBC) Count 13.4 thou/uL (4.8-10.8)
[2018-01-12 06:55] LABS: ALT (SGPT) 53 U/L (8-55); AST (SGOT) 67 U/L (5-34); Albumin 3.6 g/dL (3.4-4.8); Alkaline Phosphatase 260 U/L (40-150); Anion Gap 17 mmol/L (10-20); BUN (Urea Nitrogen) 14 mg/dL (8.4-25.7); Bilirubin, Total 1.1 mg/dL (0.2-1.2); Calc. Creatinine Clearance 79 mL/min (70-130); Calcium 9.6 mg/dL (7.8-10.44); Carbon Dioxide 23 mmol/L (23-31); Cardiac Risk 36.1 (Less than 4.5); Chloride 96 mmol/L (98-107); Cholesterol 289 mg/dl (< 200 Desired); Estimated GFR-MDRD 50; Globulin 4.1 g/dL (2.4-3.5); Glucose 190 mg/dL (80-115); HDL Cholesterol 8 mg/dL (>60 Neg Risk); Potassium 3.5 mmol/L (3.5-5.1); Protein, Total 7.7 g/dL (5.8-8.1); Sodium 132 mmol/L (136-145); Triglycerides 687 mg/dL (Less than 150)
[2018-01-12 07:48] VITALS: BP 166/82; TEMP 98.4
[2018-01-12] MEDS: Fenofibrate 48 MG TAB PO SCH (08:02)
[2018-01-12] MEDS: glipiZIDE 5 MG TAB PO SCH (08:02)
[2018-01-12] MEDS: HYDROcodone/Acetaminophen 10/325 mg Tablet PO PRN (08:02)
[2018-01-12] MEDS: Docusate 100 MG CAP PO SCH (08:03)
[2018-01-12] MEDS: Amlodipine 5 MG TAB PO SCH (08:03)
[2018-01-12] MEDS: Spironolactone 25 MG TAB PO SCH (08:03)
[2018-01-12] MEDS: Allopurinol 300 MG TAB PO SCH (08:04)
[2018-01-12] MEDS: Fish Oil 1,000 MG CAP PO SCH (08:04)
[2018-01-12] MEDS: Enoxaparin Sodium 40 MG/0.4 ML SYRINGE SC SCH (08:13)
--- NOTE | 2018-01-12 08:49 | RAD ---
CHEST 2 VIEWS: Date: 01/12/18 HISTORY: Pleural effusion. COMPARISON: 01/11/18. FINDINGS: Cardiac silhouette and pulmonary vasculature are unremarkable. Mediastinum midline with postoperative changes. Patchy infiltrate at the left base with blunting of the costophrenic angle is similar in ap pearance to the previous exam. No evidence of pneumothorax. IMPRESSION: Small amount of left pleural fluid, left basilar infiltrate, and other findings are stable. POS: TPC
[2018-01-12] MEDS ORDERED: Pantoprazole 40 MG GRANULES PACKET PO SCH (09:00)
[2018-01-12] MEDS: Metoprolol Tartrate 100 MG TAB PO SCH (11:48)
--- NOTE | 2018-01-12 12:56 | ADD-PRG ---
DATE OF SERVICE: 01/12/2018 Please add this as an addendum to the note of Dr. Nancy Pham. Mr. Benson looks and feels much better. He is having mild abdominal pain, but much improved over admi ssion. He is tolerating a near normal low-fat diet. His triglycerides remain in the 600s and he is on medical therapy for this. He will be discharged today for close followup with his PCP in [place], [place]. I have also urged him to see an turning machine set up operator to see if there is something we can do furthe r to reduce his triglyceride levels and thus reducing his risk of further episodes of pancreatitis. He seems to understand our discussion and we will follow through with his PCP.
--- NOTE | 2018-01-12 22:52 | PRG ---
DATE OF SERVICE: 01/12/2018 SUBJECTIVE: Mr. Benson feels better. He still has some left lower quadrant pain. He has had a great appetite. OBJECTIVE: VITAL SIGNS: Temperature is 98.4, last fever was 100 at 1600 hours yesterday, respirations 16, blood pressure 166/82. LUNGS: Clear. ABDOMEN: Soft, nontender. LABORATORY DATA: White count 13.4, hemoglobin 12.4, platelet count 250. Sodium 132, potassium 3.5. BUN and creatinine are 14 and 1.44. AST and ALT are 67 and 53, bilirubin 1.1, alkaline phosphatase 260, triglycerides 687. Workup IgG subclass 4 normal. ASSESSMENT: 1. Pancreatitis secondary to hypertriglyceridemia, improving. 2. Hypertriglyceridemia. 3. Hypertension. 4. Diabetes. PLAN: The patient can follow up with us in the outpatient setting in 3-4 weeks. If pain persists, w ould need a followup CAT scan at that time. Otherwise, no followup is necessary from a GI standpoint with the pancreatitis. No followup imaging would be needed. We will see him back in a few weeks.
[2018-01-13 09:21] LABS: Albumin-Ur 38.9 % (.); Alpha 2 - Ur 14.7 % (.); Beta-Ur 14.1 % (.); Gamma-Ur 18.3 % (.); M-Spike,% Not Observed % (Not Observed)
== END 2018-01-12 18:05 | disposition home or self-care (01) | DRG 439 ==
LOC: ERS 15:31 → T4-A 01-06 00:50
PROVIDERS: ADMIT Student in an Organized Health Care Education/Training Program; ATTEND Student in an Organized Health Care Education/Training Program
DX: K85.90 Acute pancreatitis without necrosis or infection, unspecified (principal); N17.9 Acute kidney failure, unspecified; J98.11 Atelectasis; I50.30 Unspecified diastolic (congestive) heart failure; E78.5 Hyperlipidemia, unspecified; E78.1 Pure hyperglyceridemia; I25.10 Atherosclerotic heart disease of native coronary artery without angina pectoris; Z95.1 Presence of aortocoronary bypass graft; E11.9 Type 2 diabetes mellitus without complications; Z79.84 Long term (current) use of oral hypoglycemic drugs; K59.00 Constipation, unspecified; M10.9 Gout, unspecified; I11.0 Hypertensive heart disease with heart failure
CPT/HCPCS: 36415; 36416; 71045; 71046; 71275; 74177; 76705; 80053; 80061; 81003; 81015; 82553; 82787; 82947; 83036; 83690; 83880; 84145; 84165; 84166; 84484; 85025; 86038; 86225; 87040; 87086; 93005; 93010; 93306; 94660; 94760; 96361; 96365; 96375; 96376; A4216; J0696; J1650; J1940; J2270; J2405; J3010; J7120